=== PATIENT | female | born 1950 | race Caucasian/White ===

== ENCOUNTER 2018-05-17 16:37 | Emergency (ER) | payer SELFPAY ==
[2018-05-17 17:15] VITALS: BP 126/74
--- NOTE | 2018-05-17 17:48 | ER Report ---
History and Physical Time Seen By MD: 16:40 HPI/ROS CHIEF COMPLAINT: code HISTORY OF PRESENT ILLNESS: Pt brought in by EMS after having syncopal [place]; she reportedly briefly awoke, then again lost consciousness. Bystander CPR was initiated. EMS on scene intubated and initated sylwia device, 6 rounds epi, pt was pulseless throughout prior to arrival. REVIEW OF SYSTEMS: unable to assess due to pt condition Remainder of the 14 system rev: No Past Medical/Surgical History obtained from son - see nursing note Physical Exam General Appearance: Patient is comatose being ventilated. Respiratory: Breath sounds are equal bilaterally. Cardiac: Heart sounds are absent. [DIFFERENTIAL DIAGNOSIS: After history and physical exam differential diagnosis was considered for] cardiac arrest including myocardial infarction, arrhythmia, pulmonary embolus, aortic dissection, trauma and severe electrolyte abnormality Medical Decision Making ED Course/Re-evaluation ED Course Ett visualized passing through cords via glidescope. breath sounds auscultated bilaterally. Pt in PEA upon initial pulse check, with wide complex borderline tachycardia. We considered H/T's as causes of PEA. Pt without e/o ptx by bedside US; US shows minimal cardiac activity on initial exam, and no free fluid in abdomen. Bicarb/ca administered for probable acidemia/hyperkalemia. Abg obtained showing profound acidemia of 6.67; subsequent bicarb administered. Pt without response to initial treatments, though with continued pea. Therefore I attempted tpa for potential for massive PE. TPA circulated multiple pulse checks without change in status, in fact pt continued to have less and less cardiac activity. I discussed with next of kin son x 2. After approx 45 min of cpr in ED, on us recheck there is no organized cardiac activity and profoundly slow PEA. At this point, and after discussion with son, I called code without any viable signs of life. Decision to Disposition Date: May 17, 2018 Decision to Disposition Time: 17:35 Critical Care Time I spent a total of 45 min of critical care time in obtaining history, performing a physical exam, bedside monitoring of interventions, collecting and interpreting tests and discussion with family but not including time spent performing procedures. Depart Departure Impression: Primary Impression: Cardiopulmonary arrest Condition: Disposition: RAMIREZ RAMOS MD May 17, 2018 17:48
== END 2018-05-17 17:19 | disposition expired ==
LOC: ER 17:00 → EDBD 17:00 → ER 17:19
DX: I46.9 Cardiac arrest, cause unspecified (principal)
CPT/HCPCS: 36600; 82803; 99291

== ENCOUNTER → 2018-05-17 | Outpatient (CLI) | payer SELFPAY | LOC: AMB 16:03 | PROVIDERS: ATTEND Nurse Practitioner | DX: I46.9 Cardiac arrest, cause unspecified (principal); R55 Syncope and collapse | CPT/HCPCS: A0425; A0433; A0434 ==